=== PATIENT | female | born 1995 | race Caucasian/White ===

== ENCOUNTER 2025-01-02 07:29 | Day surgery (SDC) | payer BC, OTHER ==
[2025-01-02 08:14] LABS: Absolute Basophils 0.1 K/uL (0-0.5); Absolute Eosinophils 0.3 K/uL (0-0.5); Absolute Lymphocytes (CBC) 2.1 K/uL (0.7-4.9); Absolute Monocytes 0.6 K/uL (0.1-1.3); Basophils % 0.6 % (0-1.3); Eosinophils % 3.1 % (0-4.4); Hematocrit 40.1 % (36.0-45.0); Hemoglobin 13.9 g/dL (12.0-15.0); MCH 31.7 pg (27.0-35.0); MCHC 34.7 g/dL (32.0-36.0); MCV 91.4 fL (80-100); Monocytes % 5.7 % (3.3-12.3); Neutrophils % 69.6 % (41.7-73.7); Nucleated Red Blood Cells % 0.1 % (0-0); Platelets 335 thou/uL (152-406); RBC Red Blood Cell Count 4.39 M/uL (3.86-4.86); Red Cell Distribution Width 13.6 % (12.1-15.2)
[2025-01-02 08:19] LABS: PT Prothrombin Time 10.7 SECONDS (10-13.0); PTT, Activated Partial Thromb 32.1 SECONDS (27.2-37.4); Protime INR 0.94
[2025-01-02 08:27] VITALS: BMI 41.5
[2025-01-02 08:31] LABS: ALT/SGPT 19 U/L (13-56); AST/SGOT 11 U/L (15-37); Albumin 3.3 g/dL (3.4-5.0); Albumin/Globulin Ratio 0.8 (1.1-1.8); Alkaline Phosphatase 128 U/L (45-117); Anion Gap 9.5 mEq/L (5.0-15.0); BUN Blood Urea Nitrogen 12 mg/dL (7-18); Bicarbonate 19 mEq/L (21-32); Bilirubin Total 0.2 mg/dL (0.2-1.0); Globulin 4.3 g/dL (2.3-3.5); Glomerular Filtration Rate 118 ml/min (=/>90); Glucose Level 176 mg/dL (74-106); Potassium 3.5 mEq/L (3.5-5.1); Protein, Total 7.6 g/dL (6.4-8.2); Sodium Level 138 mEq/L (136-145)
[2025-01-02 08:38] LABS: Bilirubin Direct < 0.2 mg/dL (0-0.2)
[2025-01-02] MEDS: HYDROCODONE/APAP 7.5/325 MG TAB ONE (10:32)
--- NOTE | 2025-01-02 10:46 | RAD REPORT ---
PROCEDURE: FLUOROSCOPY GUIDED LUMBAR PUNCTURE CLINICAL INDICATION: BENIGN INTRACRANIAL HYPERTENSION COMPLICATIONS: No immediate complications. PROCEDURE DETAILS: Consent: Informed consent for the procedure including risks, benefits and alternatives was obtained a nd time-out was performed prior to the procedure. Preparation: The patient was positioned prone on the fluoroscopic table. Appropriate area of the back was prepared and draped using all elements of maximal sterile barrier technique including sterile gloves, sterile gown, cap, mask, large sterile sheet, hand hygiene and cutaneous antisepsis with 2% c hlorhexidine. Imaging prior to procedure: Plain radiographs of the lumbar spine. Procedure: Local anesthesia was administered. Under fluoroscopic guidance, a spinal needle was advanc ed into the subarachnoid space at the level of L3-4. Fluid obtained: 11 cc of clear CSF Opening pressure: Subjectively normal. Fluoroscopy time: 0.39 minutes Estimated blood loss: Less than 10 mL. IMPRESSION: Technically successful fluoroscopic-guided lumbar puncture as detailed.
[2025-01-02 13:30] LABS: CSF Glucose 97 mg/dL (40-70)
[2025-01-02 13:33] LABS: Body Fluid Source CSF; Color of Supernate Not Xanthochromic (Not Xantho); Color of fluid Colorless (COLORLESS); Fluid Total Volume 10 ml; Tube # SINGLE
[2025-01-02 13:34] LABS: Appearance CLEAR (CLEAR); Body Fluid WBC 0 /mm^3
[2025-01-02 14:29] VITALS: BP 137/77; TEMP 98.4; O2SAT 97
== END 2025-01-02 12:34 | disposition home or self-care (01) ==
LOC: DS 07:29
PROVIDERS: ATTEND Psychiatry & Neurology Neurology with Special Qualifications in Child Neurology
PROC: 00JU3ZZ Inspection of Spinal Canal, Percutaneous Approach (ICD-10-PCS; principal; 2025-01-02)
DX: G93.2 Benign intracranial hypertension (principal); E66.9 Obesity, unspecified; I63.9 Cerebral infarction, unspecified; G43.719 Chronic migraine without aura, intractable, without status migrainosus
CPT/HCPCS: 36415; 62328; 77003; 80048; 80076; 82945; 84157; 85025; 85610; 85730; 89050